=== PATIENT | male | born 1945 | race Caucasian/White ===

== ENCOUNTER 2016-12-10 15:34 | Emergency (ER) | payer MEDICARE ==
--- NOTE | 2016-12-10 16:40 | NUR ---
ADMINISTERED DUONEB UPDRAFT. PT C/O OF DIFFICULTY BREATHING EXERTIONAL DYSPNEA NOTED BILATERAL EXPIRATORY WHEEZING IN APICIES OF LUNGS. SPO2 96 HR 117. PT DANAY TX WELL
[2016-12-10 16:56] LABS: BASOPHILS 0.5 % (0-2); EOSINOPHILS 1.5 % (0-7); HEMATOCRIT 46.6 % (42.0-54.0); HEMOGLOBIN 15.7 g/dL (13.5-17.5); IMMATURE GRANULOCYTES 0.4 % (0-5); LYMPHOCYTES 10.9 % (15-50); MCH 34.4 pg (26.0-34.0); MCHC 33.7 g/dL (31.0-37.0); MCV 102.2 fL (80.0-100.0); MEAN PLATELET VOLUME 9.6 fL (7.4-10.4); MONOCYTES 10.7 % (2-11); PLATELET COUNT 176 10x3/uL (130-400); RBC 4.56 10x6/uL (4.20-6.10); WBC 7.6 10x3/uL (4.8-10.8)
[2016-12-10 17:11] LABS: ALBUMIN 3.4 g/dL (3.4-5.0); BILIRUBIN - TOTAL 0.7 mg/dL (0.2-1.3); CALCIUM 8.8 mg/dL (8.5-10.1); CARBON DIOXIDE 28.4 mmol/L (21.0-32.0); CREATININE - SERUM 1.4 mg/dL (0.6-1.3); POTASSIUM - SERUM 3.4 mmol/L (3.5-5.1); PROTEIN - SERUM 7.2 g/dL (6.4-8.2)
== END 2016-12-10 17:36 | disposition home or self-care (01) ==
LOC: D.ER 15:34
PROVIDERS: Nurse Practitioner Family
DX: J44.1 Chronic obstructive pulmonary disease with (acute) exacerbation (principal); J45.901 Unspecified asthma with (acute) exacerbation; I10 Essential (primary) hypertension; R06.2 Wheezing; R06.00 Dyspnea, unspecified; R05 Cough

== ENCOUNTER 2018-03-03 22:48 | Emergency (ER) | payer MEDICARE ==
[~2018-03-03] VITALS: Ht 170.2 cm; Wt 71.4 kg
[2018-03-03 23:03] VITALS: Ht 170.2 cm; Wt 71.4 kg
[2018-03-03] MEDS ORDERED: LOSARTAN-HCTZ1 EAC2 (23:05)
[2018-03-03] MEDS ORDERED: MOBIC7.5 MG (23:05)
[2018-03-03] MEDS ORDERED: STERAPRED DS 1010 MG (23:05)
[2018-03-03] MEDS ORDERED: PEPCID AC20 MG (23:05)
[2018-03-04 01:20] VITALS: BP 138/88
== END 2018-03-04 01:21 | disposition home or self-care (01) ==
LOC: D.ER 22:48
DX: R05 Cough (principal); R09.89 Other specified symptoms and signs involving the circulatory and respiratory systems; Z87.09 Personal history of other diseases of the respiratory system; R06.09 Other forms of dyspnea; I10 Essential (primary) hypertension; K21.9 Gastro-esophageal reflux disease without esophagitis

== ENCOUNTER 2019-01-31 21:29 | Inpatient (IN) | payer MEDICARE ==
[~2019-01-31] VITALS: Ht 170.2 cm; Wt 69.4 kg
[~2019-01-31 21:29] MED LIST: LOSARTAN-HCTZ1 EAC2; MOBIC7.5 MG; PEPCID AC20 MG; STERAPRED DS 1010 MG
[2019-01-31] MEDS ORDERED: MUSCLE RELAXER PO (21:42)
[2019-01-31 21:46] LABS: BASOPHILS 0.7 % (0-2); EOSINOPHILS 5.1 % (0-7); HEMATOCRIT 43.1 % (42.0-54.0); HEMOGLOBIN 14.5 g/dL (13.5-17.5); IMMATURE GRANULOCYTES 0.3 % (0-5); LYMPHOCYTES 32.7 % (15-50); MCH 33.8 pg (26.0-34.0); MCHC 33.6 g/dL (31.0-37.0); MCV 100.5 fL (80.0-100.0); MEAN PLATELET VOLUME 9.2 fL (7.4-10.4); MONOCYTES 11.5 % (2-11); NEUTROPHILS 49.7 % (40-80); RBC 4.29 10x6/uL (4.20-6.10); WBC 7.5 10x3/uL (4.8-10.8)
[2019-01-31 21:48] LABS: PLATELET COUNT 220 10x3/uL (130-400)
[2019-01-31 21:56] LABS: APTT 27.1 SECONDS (22.8-39.4); INR 1.07 (0.85-1.17); PROTIME 13.4 SECONDS (11.6-15.0)
[2019-01-31 22:09] LABS: ALBUMIN 3.4 g/dL (3.4-5.0); ALKALINE PHOSPHATASE 60 U/L (46-116); ALT (SGPT) 26 U/L (10-68); CALC OSMOLALITY 283 mosm/kg (275-300); CALCIUM 8.8 mg/dL (8.5-10.1); CARBON DIOXIDE 23.3 mmol/L (21.0-32.0); CHLORIDE - SERUM 106 mmol/L (98-107); CREATININE - SERUM 1.1 mg/dL (0.6-1.3); GLUCOSE 91 mg/dL (74-106); POTASSIUM - SERUM 3.3 mmol/L (3.5-5.1); PROTEIN - SERUM 7.1 g/dL (6.4-8.2); SODIUM 142 mmol/L (136-145); UREA NITROGEN 16 mg/dL (7-18); eGFR NON AFRICAN AMERICAN 70 mL/min (90-120)
[2019-01-31 22:21] LABS: CKMB 1.6 U/L (0.0-3.6); CREATINE KINASE 116 UL (21-232); PRO BNP 75 pg/mL (0-125); TROPONIN-I < 0.017 ng/mL (0.000-0.060)
[2019-02-01 01:20] VITALS: BP 122/66; BMI 24.0
[2019-02-01 06:10] LABS: BASOPHILS 0.2 % (0-2); EOSINOPHILS 0 % (0-7); HEMATOCRIT 45.1 % (42.0-54.0); HEMOGLOBIN 15.2 g/dL (13.5-17.5); IMMATURE GRANULOCYTES 0.3 % (0-5); LYMPHOCYTES 8.5 % (15-50); MCH 33.9 pg (26.0-34.0); MCHC 33.7 g/dL (31.0-37.0); MCV 100.4 fL (80.0-100.0); MEAN PLATELET VOLUME 9.7 fL (7.4-10.4); MONOCYTES 0.3 % (2-11); NEUTROPHILS 90.7 % (40-80); PLATELET COUNT 237 10x3/uL (130-400); RBC 4.49 10x6/uL (4.20-6.10); WBC 5.9 10x3/uL (4.8-10.8)
[2019-02-01 06:16] LABS: ANION GAP 9.7 mmol/L (8-16); CALCIUM 8.9 mg/dL (8.5-10.1); CARBON DIOXIDE 28.5 mmol/L (21.0-32.0); CREATININE - SERUM 1.1 mg/dL (0.6-1.3); MAGNESIUM - SERUM 2.3 mg/dL (1.8-2.4); PHOSPHOROUS 1.9 mg/dL (2.5-4.9)
[2019-02-01 06:18] LABS: POTASSIUM - SERUM 4.2 mmol/L (3.5-5.1)
[2019-02-01 08:35] VITALS: BP 145/81
[2019-02-01 09:55] VITALS: Ht 170.2 cm; Wt 69.4 kg
[2019-02-01 13:14] VITALS: BP 159/86
--- NOTE | 2019-02-01 16:10 | NUR ---
PT RESTING IN BED. NO SIGNS OF DISTRESS. IV TO LEFT FORARM PATENT NO REDNESS OR TENDERNESS. ON 2L NC. DENIES ANY FURTHER NEED AT THIS TIME. CALL LIGHT IN REACH. BED LOW POSITION. FAMILY AT BEDSIDE AT THIS TIME.
[2019-02-01 16:31] VITALS: BP 121/75
--- NOTE | 2019-02-01 18:45 | NUR ---
I have reviewed this patient and I concur with the Shift Assessment completed by the Licensed Practical Nurse today this shift.
[2019-02-01 19:44] VITALS: BP 150/81
--- NOTE | 2019-02-02 00:35 | NUR ---
A&O X 4, AT BEDSIDE. AMBULATORY AD CINTHYA. DENIES PAIN, REPORTS SOB EPISODE DURING THE DAY. DENIES NEEDS AT THIS TIME, WILL CONTINUE TO MONITOR.
--- NOTE | 2019-02-02 01:17 | NUR ---
I have reviewed this patient and I concur with the Shift Assessment completed by the Licensed Practical Nurse today this shift.
--- NOTE | 2019-02-02 01:18 | NUR ---
I have reviewed this patient and I concur with the Shift Assessment completed by the Licensed Practical Nurse today this shift.
[2019-02-02 05:25] VITALS: BP 148/78
[2019-02-02 06:55] LABS: BASOPHILS 0.1 % (0-2); EOSINOPHILS 0 % (0-7); HEMATOCRIT 45.3 % (42.0-54.0); HEMOGLOBIN 15.1 g/dL (13.5-17.5); IMMATURE GRANULOCYTES 0.4 % (0-5); LYMPHOCYTES 6.6 % (15-50); MCH 33.6 pg (26.0-34.0); MCHC 33.3 g/dL (31.0-37.0); MCV 100.9 fL (80.0-100.0); MEAN PLATELET VOLUME 9.9 fL (7.4-10.4); MONOCYTES 4.4 % (2-11); NEUTROPHILS 88.5 % (40-80); PLATELET COUNT 269 10x3/uL (130-400); RBC 4.49 10x6/uL (4.20-6.10); RDW 13.2 % (11.5-14.5)
[2019-02-02 07:06] LABS: WBC 16.8 10x3/uL (4.8-10.8)
--- NOTE | 2019-02-02 07:11 | NUR ---
PT IS RESTING IN BED WITH EYES OPEN. RESPIRATIONS ARE EVEN AND UNLABORED. PT IS AAO X 4. PT DENIES PRESENCE OF DYSPNEA/SOB AT THIS TIME. PT IS ON ROOM AIR. IS AT BEDSIDE. PT DENIES PRESENCE OF N/V/PAIN. PT DENIES PRESENCE OF NUMBNESS TINGLING AT THIS TIME. BED IS IN THE LOWEST POSITION. CALL LIGHT AND BEDSIDE TABLE ARE WITHIN REACH. SIDE RAILS X 2. PT DENIES FURTHER NEEDS. WILL CONT TO MONITOR.
[2019-02-02 07:19] LABS: ANION GAP 15.1 mmol/L (8-16); CALCIUM 9.1 mg/dL (8.5-10.1); CREATININE - SERUM 1.3 mg/dL (0.6-1.3); MAGNESIUM - SERUM 2.2 mg/dL (1.8-2.4); POTASSIUM - SERUM 4.1 mmol/L (3.5-5.1)
[2019-02-02 07:21] LABS: PHOSPHOROUS 4.1 mg/dL (2.5-4.9)
[2019-02-02 08:40] VITALS: BP 110/68
--- NOTE | 2019-02-02 11:13 | NUR ---
PT AMBULATING IN HALLWAY. PT REFUSES SCDS AT THIS TIME. PT STATES "I GET THAT BLOOD THINNER SHOT SO I DONT THINK THAT I NEED THOSE". PT DENIES PRESENCE OF PAIN/N/V. PT DENIES PRESENCE OF DIZZINESS/SOB/DYSPNEA AT REST AND WITH EXERTION. PT STATES "I AM JUST GOING TO GO ON A LITTLE WALK ABOUT". PT DENIES FURTHER NEEDS.
--- NOTE | 2019-02-02 11:44 | NUR ---
TELEMETRY PLACED ON PT. OFFICE MACHINE TECHNICIAN TECH REPORTS PT RUNNING 99 SR AT THIS TIME.
[2019-02-02 13:26] VITALS: BP 153/60
[2019-02-02 15:04] VITALS: BP 153/60
[2019-02-02 16:38] VITALS: BP 107/71
[2019-02-02 19:00] VITALS: BP 126/69
--- NOTE | 2019-02-02 19:45 | NUR ---
LYING IN BED WATCHING TV. ALERT AND ORIENTED X4. AT BEDSIDE. RESP EVEN AND NONLABORED. DENIES COUGH. NO O2 IN USE. BBS DIMINISHED. DENIES PAIN. REFUSES TO WEAR SCDS. SALINE LOCK NOTED TO LT AC. TELEMETRY SHOWS SR WITH RATE OF 68. NO EDEMA NOTED. DENIES NEEDS. SR ELEVATED X2. CL IN REACH. NO DISTRESS.
--- NOTE | 2019-02-02 23:37 | NUR ---
AWAKENED FOR IV ANTIBIOTICS. NO DISTRESS. CL IN REACH.
[2019-02-03] VITALS: BP 119/79
--- NOTE | 2019-02-03 00:56 | NUR ---
IV LEAKING. IV CATH REMOVED FROM LT AC. 22G INSERTED IN LT FOREARM X1 ATTEMPT. PT DANAY WELL.
[2019-02-03 04:00] VITALS: BP 129/71
[2019-02-03 05:37] LABS: BASOPHILS 0 % (0-2); EOSINOPHILS 0 % (0-7); HEMATOCRIT 43.3 % (42.0-54.0); HEMOGLOBIN 14.1 g/dL (13.5-17.5); IMMATURE GRANULOCYTES 0.2 % (0-5); LYMPHOCYTES 6.6 % (15-50); MCH 32.9 pg (26.0-34.0); MCHC 32.6 g/dL (31.0-37.0); MCV 100.9 fL (80.0-100.0); MEAN PLATELET VOLUME 9.8 fL (7.4-10.4); NEUTROPHILS 88.2 % (40-80); PLATELET COUNT 257 10x3/uL (130-400); RBC 4.29 10x6/uL (4.20-6.10); RDW 13.3 % (11.5-14.5); WBC 13.1 10x3/uL (4.8-10.8)
[2019-02-03 05:54] LABS: ANION GAP 9.2 mmol/L (8-16); CARBON DIOXIDE 28.4 mmol/L (21.0-32.0); CREATININE - SERUM 1.2 mg/dL (0.6-1.3); MAGNESIUM - SERUM 2.4 mg/dL (1.8-2.4); PHOSPHOROUS 3.9 mg/dL (2.5-4.9); POTASSIUM - SERUM 3.6 mmol/L (3.5-5.1)
[2019-02-03 07:00] VITALS: BP 116/70
[2019-02-03 11:56] VITALS: BP 95/68
[2019-02-03 16:58] VITALS: BP 109/66
--- NOTE | 2019-02-03 19:20 | NUR ---
LYING IN BED WATCHING TV. ALERT AND ORIENTED X4. AT BEDSIDE. RESP EVEN AND NONLABORED. O2 @ 2L/NC. PROD COUGH NOTED WITH CLEAR/WHITE SPUTUM. TELEMETRY SHOWS SR WITH RATE OF 69. AMBULATORY. DENIES PAIN. NO DISTRESS. SALINE LOCK NOTED TO LT FOREARM. SR ELEVATED X2. CL IN REACH.
[2019-02-03 20:00] VITALS: BP 121/75
[2019-02-04] VITALS: BP 111/70
[2019-02-04 04:00] VITALS: BP 134/86
[2019-02-04 05:33] LABS: ANION GAP 10.8 mmol/L (8-16); CALCIUM 8.8 mg/dL (8.5-10.1); CARBON DIOXIDE 29.1 mmol/L (21.0-32.0); CREATININE - SERUM 1.1 mg/dL (0.6-1.3); MAGNESIUM - SERUM 2.3 mg/dL (1.8-2.4); PHOSPHOROUS 4.6 mg/dL (2.5-4.9); POTASSIUM - SERUM 3.9 mmol/L (3.5-5.1)
--- NOTE | 2019-02-04 06:03 | NUR ---
RESTED WELL TONIGHT. NO DISTRESS. AT BEDSIDE. TALKATIVE WITH STAFF. O2 @ 3L/NC. CL IN REACH. DRINKING COFFEE.
[2019-02-04 06:07] LABS: BASOPHILS 0 % (0-2); EOSINOPHILS 0 % (0-7); HEMATOCRIT 43.4 % (42.0-54.0); HEMOGLOBIN 14.3 g/dL (13.5-17.5); IMMATURE GRANULOCYTES 0.7 % (0-5); MCH 33.1 pg (26.0-34.0); MCHC 32.9 g/dL (31.0-37.0); MCV 100.5 fL (80.0-100.0); MEAN PLATELET VOLUME 9.7 fL (7.4-10.4); MONOCYTES 6.8 % (2-11); NEUTROPHILS 84.5 % (40-80); PLATELET COUNT 258 10x3/uL (130-400); RBC 4.32 10x6/uL (4.20-6.10); RDW 13.3 % (11.5-14.5); WBC 11.5 10x3/uL (4.8-10.8)
--- NOTE | 2019-02-04 07:35 | NUR ---
PT RESTING IN BED. RESP EVEN AND UNLABORED. O2 @ 2L NC IN PLACE. DENIES PAIN AT THIS TIME. AT BEDSIDE. SALINE LOC TO LEFT FOREARM, SITE WITHOUT REDNESS OR EDEMA. DENIES FURTHER NEEDS AT THIS TIME. CL WITHIN REACH. ENCOURAGED TO CALL WITH NEEDS. CONTINUE POC
[2019-02-04 08:36] VITALS: BP 116/77
[2019-02-04 12:48] VITALS: BP 123/85
--- NOTE | 2019-02-04 15:02 | MORECARE ---
CASE MANAGEMENT DISCHARGE SUMMARY PATIENT: KAPIL CONNELL UNIT: [id number] ADM DATE: 01/31/19 AGE: 73 : 45 SEX: M ROOM/BED: D.2211 AUTHOR: WILY GRIGGS PHYSICIAN: REFERRING PHYSICIAN: RUBY ERICKSON MD DATE OF SERVICE: 02/04/19 Discharge Plan Patient Name: KAPIL CONNELL [facility] : 1945 Planned Disposition: Home or Self Care Anticipated Discharge Date: Discharge Date: Expected LOS: Initial Reviewer: [id number] Initial Review Date: 02/01/2019 Generated: 02/04/19 4:02 pm DCPIA - Discharge Planning Initial Assessment Updated by [email or web address]: Radha Cruz on 02/04/19 2:58 pm * Is the patient Alert and Oriented? Yes * How many steps to enter\exit or inside your home? * PCP DR BARNES * Pharmacy [facility] [address] * Preadmission Environment Homeless * Other Environment LIVES IN HIS TRUCK WITH HIS * ADLs Independent * Equipment Nebulizer * List name and contact numbers for known caregivers / representatives who currently or will assist patient after discharge: MARIE () * Verbal permission to speak to the caregivers and representatives has been obtained from the patient. Yes * Community resources currently utilized Other * Additional services required to return to the preadmission environment? Yes * Can the patient safely return to the preadmission environment? Yes * Has this patient been hospitalized within the prior 30 days at any hospital? No Patient Name: KAPIL CONNELL Page [phone] at 1502 All edits/amendments must be made on the electronic document DICTATION DATE: 02/04/19 1502 SUPERVISOR DIAGNOSTIC: LEXY 02/04/19 1502 RPT#: [id number] DC DATE: STATUS: ADM IN [facility] [address] [place] [address] END OF REPORT
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
[2019-02-04 16:30] VITALS: BP 137/85
[2019-02-04 20:00] VITALS: BP 102/64
--- NOTE | 2019-02-04 20:00 | NUR ---
A/O WITH NO SIGNS OF ACUTE DISTRESS. IV TO THE LT FOREARM, CDI. AT BEDSIDE. DENIES PAIN OR OTHER NEEDS AT THIS TIME. CONTINUE PLAN OF CARE.
[2019-02-05 04:00] VITALS: BP 120/81
[2019-02-05 06:06] LABS: BASOPHILS 0.1 % (0-2); EOSINOPHILS 0 % (0-7); HEMATOCRIT 44.1 % (42.0-54.0); HEMOGLOBIN 14.8 g/dL (13.5-17.5); LYMPHOCYTES 11.3 % (15-50); MCH 33.6 pg (26.0-34.0); MCHC 33.6 g/dL (31.0-37.0); MEAN PLATELET VOLUME 9.6 fL (7.4-10.4); MONOCYTES 6.6 % (2-11); PLATELET COUNT 245 10x3/uL (130-400); RBC 4.41 10x6/uL (4.20-6.10); RDW 13.2 % (11.5-14.5); WBC 10.2 10x3/uL (4.8-10.8)
[2019-02-05 07:15] LABS: ANION GAP 12.6 mmol/L (8-16); CALCIUM 8.7 mg/dL (8.5-10.1); CARBON DIOXIDE 26.7 mmol/L (21.0-32.0); CREATININE - SERUM 1.2 mg/dL (0.6-1.3); MAGNESIUM - SERUM 2.5 mg/dL (1.8-2.4); PHOSPHOROUS 4.8 mg/dL (2.5-4.9); POTASSIUM - SERUM 4.3 mmol/L (3.5-5.1)
[2019-02-05 08:26] VITALS: BP 128/75
[2019-02-05] MEDS ORDERED: ZITHROMAX250 MG PO (11:37)
[2019-02-05] MEDS ORDERED: IPRAT-ALBUT 0.5-3 ML UPD (11:39)
[2019-02-05] MEDS ORDERED: PREDNISONE10 MG PO (11:42)
[2019-02-05] MEDS ORDERED: ALBUTEROL SULF8.5 GM INH (11:44)
[2019-02-05 12:24] VITALS: BP 119/78
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
--- NOTE | 2019-02-05 13:17 | NUR ---
IV THERAPY DC'ED WITH TIP INTACT FROM LEFT FOREARM. DISCHARGE INSTRUCTIONS GIVEN AND PATIENT VERBALIZED UNDERSTANDING. WILL NOTIFY ME WHEN RIDE ARRIVES AND HE LEAVES.
--- NOTE | 2019-02-05 15:26 | NUR ---
VANILLA AND CHOCLATE PUDDING PROVIDED. CL IN REACH. NO NEEDS AT THIS TIME. WCTM
[2019-02-05 19:00] VITALS: BP 141/76
--- NOTE | 2019-02-05 20:00 | NUR ---
WAS NOTIFIED AT CHANGE OF SHIFT ABOUT DISCHARGE AND PT WAS WAITING FOR A RIDE FROM A WASH HOUSE WORKER. UPON QUESTIONING PT ABOUT RIDE HE STATED THAT HE DIDN'T KNOW WHAT TIME HE WOULD GET HER AND HASN'T HEARD FROM HIM. DAY SHIFT CALLED WASH HOUSE WORKER AND HE STATED THAT HE COULD NOT GET PT. SECURITY DELIVERY SPECIALIST NOTIFED AND PIERCE LEMUS NOTIFED. PUT IN A ORDER TO KEEP PT OVER NIGHT UNTIL CASE MANAGMENT COULD ARRANGE PLACEMENT. A/O WITH NO SIGNS OF DISTRESS. NO IV NOTED AND REFUSED EVENING MEDS. DENIES NO OTHER NEEDS AT THIS TIME. WILL CONTINUE TO MONITOR.
[2019-02-06 04:00] VITALS: BP 138/72
[2019-02-06 08:30] VITALS: BP 128/84
--- NOTE | 2019-02-06 08:46 | NUR ---
PATIENT AND WAITING ON TRANSPORT TO THEIR VEHICLE IN [place]. NO NEEDS AT THIS TIME. CL IN REACH. WCTM
--- NOTE | 2019-02-06 14:02 | NUR ---
TAKEN OUT BY VOLUNTEER TO ESTUARDO JAVED. WITH TO JORGITO
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
== END 2019-02-06 14:04 | disposition home or self-care (01) | DRG 192 ==
LOC: D.ER 21:29 → D.MS 23:13
PROVIDERS: Emergency Medicine; ADMIT Emergency Medicine; ATTEND Emergency Medicine
DX: J44.1 Chronic obstructive pulmonary disease with (acute) exacerbation (principal); E87.6 Hypokalemia; I10 Essential (primary) hypertension

== ENCOUNTER 2019-02-08 06:18 | Emergency (ER) | payer MEDICARE ==
[~2019-02-08] VITALS: Ht 170.2 cm; Wt 69.1 kg
[~2019-02-08 06:18] MED LIST changes: +ALBUTEROL SULF8.5 GM INH; +IPRAT-ALBUT 0.5-3 ML UPD; +MUSCLE RELAXER PO; +PREDNISONE10 MG PO; +ZITHROMAX250 MG PO
[2019-02-08 06:21] VITALS: Ht 170.2 cm; Wt 69.1 kg
[2019-02-08 07:00] LABS: BASOPHILS 0.4 % (0-2); EOSINOPHILS 3.3 % (0-7); HEMATOCRIT 45.1 % (42.0-54.0); HEMOGLOBIN 14.8 g/dL (13.5-17.5); IMMATURE GRANULOCYTES 3.3 % (0-5); LYMPHOCYTES 24.6 % (15-50); MCH 33.3 pg (26.0-34.0); MCHC 32.8 g/dL (31.0-37.0); MCV 101.3 fL (80.0-100.0); MEAN PLATELET VOLUME 9.5 fL (7.4-10.4); MONOCYTES 10.9 % (2-11); NEUTROPHILS 57.5 % (40-80); PLATELET COUNT 207 10x3/uL (130-400); RBC 4.45 10x6/uL (4.20-6.10); RDW 13.5 % (11.5-14.5); WBC 10.2 10x3/uL (4.8-10.8)
[2019-02-08 07:12] VITALS: BP 130/89
== END 2019-02-08 07:13 | disposition home or self-care (01) ==
LOC: D.ER 06:18
PROVIDERS: Emergency Medicine
DX: K40.90 Unilateral inguinal hernia, without obstruction or gangrene, not specified as recurrent (principal)